=== PATIENT | male | born 1980 | race Caucasian/White ===

== ENCOUNTER 2022-08-28 06:10 | Day surgery (SDC) | payer OTHER ==
[2022-08-23 13:15] VITALS: BMI 26.7
[2022-08-28] MEDS ORDERED: fentaNYL PF 100 MCG/2 ML SYRINGE ONE (06:51)
[2022-08-28] MEDS ORDERED: Dexmedetomidine 200 MCG/2 ML VIAL ONE (06:52)
[2022-08-28] MEDS ORDERED: Magnesium 5 GM/10 ML VIAL ONE (07:08)
[2022-08-28 07:27] LABS: #Eosinphils 0.1 thou/uL (0.0-0.7); #Monocytes 0.5 thou/uL (0.11-0.59); #Neutrophils 3.3 thou/uL (1.40-6.50); %Basophils 0.5 % (0.0-1.0); %Eosinophils 2.4 % (0.0-10.0); %Monocytes 8.1 % (0.0-10.0); %Neutrophils 55.1 % (42.0-75.0); Hemoglobin 15.9 g/dL (14.0-18.0); Mean Corpuscular HGB CONC 35.1 g/dL (32.0-36.0); Mean Corpuscular Hemoglobin 32.1 pg (27.0-31.0); Mean Corpuscular Volume 91.3 fl (78.0-98.0); Mean Platelet Volume 7.5 fL (7.4-10.4); Platelet Count 233 10x3/uL (130-400); RBC Distribution Width 11.4 % (11.5-14.5); Red Blood Cell (RBC) Count 4.96 mill/uL (4.70-6.10); White Blood Cell (WBC) Count 5.9 10x3/uL (4.8-10.8)
[2022-08-28 07:47] LABS: Anion Gap 11 mmol/L (10-20); BUN (Urea Nitrogen) 16 mg/dL (8.9-20.6); Calc. Creatinine Clearance 112 mL/min (70-130); Calcium 9.3 mg/dL (7.8-10.44); Carbon Dioxide 23 mmol/L (22-29); Chloride 108 mmol/L (98-107); Estimated GFR 95; Glucose 101 mg/dL (70-105); Potassium 4.3 mmol/L (3.5-5.1); Sodium 138 mmol/L (136-145)
[2022-08-28] MEDS ORDERED: Sodium Chloride 0.9% 100 ML ONE (08:04)
[2022-08-28] MEDS ORDERED: CEFAZOLIN 2 GM VIAL ONE (08:04)
[2022-08-28] MEDS ORDERED: Ketorolac Tromethamine 30 MG/ML VIAL ONE (08:30)
[2022-08-28] MEDS ORDERED: ePHEDrine Sulfate 50 MG/10 ML VIAL ONE (08:30)
[2022-08-28] MEDS ORDERED: Lidocaine 1% PF 5 ML VIAL ONE (08:30)
[2022-08-28] MEDS ORDERED: Dexamethasone 20 MG/5 ML VIAL ONE (08:30)
[2022-08-28] MEDS ORDERED: PROPOFOL 200 MG/20 ML VIAL ONE (08:30)
[2022-08-28] MEDS ORDERED: Ondansetron PF 4 MG/2 ML Vial ONE (08:30)
[2022-08-28] MEDS ORDERED: Rocuronium Bromide 10 MG/ML (10ML VIAL) ONE (08:30)
[2022-08-28] MEDS ORDERED: SUGAMMADEX SODIUM 200 MG/2 ML VIAL ONE ×2 (09:16→09:22)
[2022-08-28] MEDS ORDERED: fentaNYL 50 mcg/mL 1 mL Vial ONE (09:48)
== END 2022-08-28 11:35 | disposition home or self-care (01) ==
LOC: SDC 06:10
PROVIDERS: ATTEND Neurological Surgery
PROC: 0RT30ZZ Resection of Cervical Vertebral Disc, Open Approach (ICD-10-PCS; principal; 2022-08-28)
PROC: 0RG10A0 Fusion of Cervical Vertebral Joint with Interbody Fusion Device, Anterior Approach, Anterior Column, Open Approach (ICD-10-PCS; principal; 2022-08-28)
DX: M50.123 Cervical disc disorder at C6-C7 level with radiculopathy (principal); G89.4 Chronic pain syndrome; Z79.899 Other long term (current) drug therapy
CPT/HCPCS: 80048; 85025; 93005; 93010; C1713; J1100; J1885; J2405; J2704; J3010; J3475; J3490